=== PATIENT | female | born 1985 | race Caucasian/White ===

== ENCOUNTER 2017-04-17 02:53 | Emergency (ER) | payer MEDICAID, OTHER ==
[2017-04-17] MEDS ORDERED: Lidocaine 1% 20 ML MDV INFILT ONE (02:54)
[2017-04-17] MEDS ORDERED: Diphtheria,Pertussis(Acell),Tetanus Vaccine 0.5 ML SDV IM ONE (03:13)
[2017-04-17] MEDS ORDERED: Acetaminophen 500 MG Tab PO ONE (03:35)
--- NOTE | 2017-04-17 03:41 | EDM.PDOC ---
ED HPI GENERAL MEDICAL PROBLEM - General Chief Complaint: Laceration Stated Complaint: HAND LAC Time Seen by Provider: 04/17/17 03:15 Source of Information: Reports: Patient, Old Records, RN History Limitations: Reports: No Limitations - History of Present Illness INITIAL COMMENTS - FREE TEXT/NARRATIVE: 31 yo female presents with a work related L hand laceration. Tetanus last about 5 yrs ago. No numbness to her fingers. 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: Other (see below) (none) Left Hand Pain Score (Numeric/FACES): 3 - Related Data Allergies Allergy/AdvReac Type Severity Reaction Status Date / Time amoxicillin Allergy Hives Verified 04/17/17 02:56 metoclopramide HCl Allergy Cannot Verified 04/17/17 02:56 [From Reglan] Remember pantoprazole Allergy Itching Verified 04/17/17 02:56 Penicillins Allergy Hives Verified 04/17/17 02:56 Home Meds: Home Meds NK [No Known Home Meds] 04/17/17 [History] Past Medical History - Past Health History Medical/Surgical History: Denies Medical/Surgical History Cardiovascular History: Reports: Other (See Below) Other Cardiovascular History: gestational HTN Genitourinary History: Reports: UTI, Recurrent 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: , 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 Other OB/BYN History: 9 weeks gestation Other Musculoskeletal History: fx R fibula - Infectious Disease History Infectious Disease History: Reports: Chicken Pox, Measles, Mumps Social & Family History - Family History Family Medical History: Noncontributory OBGYN: Reports: Other OBGYN Family History: 9 weeks gestation - Tobacco Use Smoking Status *Q: Current Every Day Smoker Years of Tobacco use: 16 Packs/Tins Daily: 1 Used Tobacco, but Quit: No Month Tobacco Last Used: 08/03 Second Hand Smoke Exposure: Yes - Caffeine Use Caffeine Use: Reports: Soda - Alcohol Use Days Per Week of Alcohol Use: 1 Number of Drinks Per Day: 1 Total Drinks Per Week: 1 - Recreational Drug Use Recreational Drug Use: No Drug Use in Last 12 Months: No ED ROS GENERAL - Review of Systems Review Of Systems: See Below Constitutional: Reports: No Symptoms Respiratory: Reports: No Symptoms Cardiovascular: Reports: No Symptoms Musculoskeletal: Reports: No Symptoms Skin: Reports: Wound (L hand) Neurological: Reports: No Symptoms Psychiatric: Reports: No Symptoms ED EXAM, SKIN/RASH Exam: See Below Exam Limited By: No Limitations General Appearance: Alert, WD/WN, No Apparent Distress Ears: Normal External Exam, Normal Canal, Hearing Grossly Normal Nose: Normal Inspection, Normal Mucosa, No Blood Throat/Mouth: Normal Lips, Normal Voice, No Airway Compromise Head: Atraumatic, Normocephalic Neck: Normal Inspection Respiratory/Chest: No Respiratory Distress, No Accessory Muscle Use Cardiovascular: Regular Rate, Rhythm Extremities: Other (laceration L hypothenar emminence.) Neurological: Alert, Oriented, CN II-XII Intact, Normal Cognition, No Motor/ Sensory Deficits Psychiatric: Normal Affect, Normal Mood Skin: Warm, Dry, Normal Color, No Rash, Wound/Incision Location, Skin: Upper Extremity, Left Characteristics: Linear Associated features: Tenderness Lymphatic: No Adenopathy ED SKIN PROCEDURES - Laceration/Wound Repair Left Hand Lac/Wound length In cm: 3 Appearance: Subcutaneous, Clean Distal NVT: Neuro & Vascular Intact, No Tendon Injury Anesthetic Type: Local Local Anesthesia - Lidocaine (Xylocaine): 1% Plain Local Anesthetic Volume: Other (6 ml) Skin Prep: Saline Exploration/Debridement/Repair: No Foreign Material Found Closed with: Sutures Suture Size: other (5-0 Ethilon) # of Sutures: 8 Suture Type: Nylon Drain Placement: No Sterile Dressing Applied: Nurse Tetanus Status Addressed: Yes Complications: No Course - Vital Signs Last Recorded V/S: Last Vital Signs Temp 36.6 C 04/17/17 03:06 Pulse 74 04/17/17 03:06 Resp 16 04/17/17 03:06 BP 116/66 04/17/17 03:06 Pulse Ox 100 04/17/17 03:06 - Orders/Labs/Meds Orders: Active Orders 24 hr Category Date Time Status Vaccines to be Administered [RC] PER UNIT ROUTINE Care 04/17/17 03:14 Active DRUG SCREEN, URINE ALERE [URCHEM] Stat Lab 04/17/17 03:11 Uncollected Acetaminophen [Tylenol Extra Strength] Med 04/17/17 03:35 Once 1,000 mg PO ONETIME ONE Meds: Medications Discontinued Medications Generic Name Dose Route Start Last Admin Trade Name Hudson PRN Reason Stop Dose Admin Diphtheria/Tetanus/Acell Pertussis 0.5 ml 04/17/17 03:13 04/17/17 03:19 Adacel IM 04/17/17 03:14 0.5 ml .ONCE ONE Administration Departure - Departure Time of Disposition: 03:42 Disposition: Home, Self-Care 01 Condition: Good Clinical Impression: Laceration of hand Qualifiers: Encounter type: initial encounter Foreign body presence: without foreign body Laterality: left Qualified Code(s): S61.412A - Laceration without foreign body of left hand, initial encounter - Discharge Information Referrals: Gamal Lopez MD [Primary Care Provider] - Forms: ED Department Discharge, ED Return to Work/School Form Additional Instructions: Clean wound twice daily with soap and water. Dry. Apply Bacitracin ointment and a new dressing. Keep wound clean for 72 hrs. Take acetaminophen and/or ibuprofen as needed for pain relief. Recheck for signs of infection. Stitches out in the clinic in 10 days, call for an appt. - My Orders Last 24 Hours: My Active Orders 04/17/17 03:11 DRUG SCREEN, URINE ALERE [URCHEM] Stat 04/17/17 03:14 Vaccines to be Administered [RC] PER UNIT ROUTINE 04/17/17 03:35 Acetaminophen [Tylenol Extra Strength] 1,000 mg PO ONETIME ONE - Assessment/Plan Last 24 Hours: My Active Orders 04/17/17 03:11 DRUG SCREEN, URINE ALERE [URCHEM] Stat 04/17/17 03:14 Vaccines to be Administered [RC] PER UNIT ROUTINE 04/17/17 03:35 Acetaminophen [Tylenol Extra Strength] 1,000 mg PO ONETIME ONE
[2017-04-17 03:49] VITALS: BP 118/75
== END 2017-04-17 03:45 | disposition home or self-care (01) ==
LOC: FB.ED 02:53
DX: S61.412A Laceration without foreign body of left hand, initial encounter (principal); F17.210 Nicotine dependence, cigarettes, uncomplicated; Z3A.09 9 weeks gestation of pregnancy; Z88.1 Allergy status to other antibiotic agents; Z88.8 Allergy status to other drugs, medicaments and biological substances; Z23 Encounter for immunization; Z88.0 Allergy status to penicillin; Z87.440 Personal history of urinary (tract) infections; W26.9XXA Contact with unspecified sharp object(s), initial encounter; Y92.69 Other specified industrial and construction area as the place of occurrence of the external cause; Y99.0 Civilian activity done for income or pay
CPT/HCPCS: 12002; 90471; 90715; 99000; 99283; A4217; A9270

== ENCOUNTER 2017-07-18 17:04 | Observation (INO) | payer OTHER ==
[2017-07-18] MEDS ORDERED: Levofloxacin 250 MG Tab PO ONE (17:59)
[2017-07-18] MEDS ORDERED: Sodium Chloride 0.9% 1,000 ML IV ONE (18:22)
[2017-07-18] MEDS ORDERED: Sodium Chloride 0.9% 10 ML Syringe FLUSH PRN (18:40)
--- NOTE | 2017-07-18 18:52 | EDM.PDOC ---
ED HPI GENERAL MEDICAL PROBLEM - General Chief Complaint: General Stated Complaint: CHILLS, NAUSEA Time Seen by Provider: 07/18/17 17:22 Source of Information: Reports: Patient, Family History Limitations: Reports: Uncooperative (is always on the phone!) - History of Present Illness INITIAL COMMENTS - FREE TEXT/NARRATIVE: 31 years old w f -smoker-was seen by her PMD and diagnosed with an UTI which caused her lower abd. pain and dysuria. Pt came to the today because she has no money to buy the Abx. Pt has no F/C and a heart rate of 147. Pt denied . BP 128/81 Temp 37.1 pulse 147 Pulse ox 100% on RA Onset: Today Onset Date: 07/17/17 Onset Time: 13:00 Duration: Day(s):, Intermittent Location: Reports: Pelvis Quality: Reports: Dull, Pressure Severity: Mild Improves with: Reports: Rest Worsens with: Reports: Movement Context: Reports: Other (uti) Associated Symptoms: Reports: No Other Symptoms Bilateral Flank Pain Score (Numeric/FACES): 8 Headache Pain Score (Numeric/FACES): 8 - Related Data Allergies Allergy/AdvReac Type Severity Reaction Status Date / Time amoxicillin Allergy Hives Verified 07/18/17 17:18 metoclopramide HCl Allergy Cannot Verified 07/18/17 17:18 [From Reglan] Remember pantoprazole Allergy Itching Verified 07/18/17 17:18 Penicillins Allergy Hives Verified 07/18/17 17:18 Home Meds: Home Meds Sertraline HCl [Zoloft] 50 mg PO DAILY 07/18/17 [History] hydrOXYzine Pamoate [Hydroxyzine Pamoate] 25 mg PO Q6HR PRN 07/19/17 [History] Past Medical History - Past Health History Medical/Surgical History: Denies Medical/Surgical History Cardiovascular History: Reports: Other (See Below) Other Cardiovascular History: gestational HTN Genitourinary History: Reports: UTI, 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: , 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 Other OB/BYN History: 9 weeks gestation Other Musculoskeletal History: fx R fibula - Infectious Disease History Infectious Disease History: Reports: Chicken Pox, Measles, Mumps Social & Family History - Family History Family Medical History: Noncontributory OBGYN: Reports: Other OBGYN Family History: 9 weeks gestation - Tobacco Use Smoking Status *Q: Current Every Day Smoker Years of Tobacco use: 16 Packs/Tins Daily: 1 Used Tobacco, but Quit: No Month Tobacco Last Used: 08/03 Second Hand Smoke Exposure: Yes - Caffeine Use Caffeine Use: Reports: Coffee - Alcohol Use Days Per Week of Alcohol Use: 1 Number of Drinks Per Day: 1 Total Drinks Per Week: 1 - Recreational Drug Use Recreational Drug Use: No Drug Use in Last 12 Months: No ED ROS GENERAL - Review of Systems Review Of Systems: See Below Constitutional: Reports: Fever, Chills HEENT: Reports: No Symptoms Respiratory: Reports: No Symptoms Cardiovascular: Reports: No Symptoms Endocrine: Reports: No Symptoms GI/Abdominal: Reports: Abdominal Pain (suprapubic) : Reports: Dysuria, Flank Pain, Frequency, Hematuria Musculoskeletal: Reports: No Symptoms Skin: Reports: No Symptoms Neurological: Reports: No Symptoms Psychiatric: Reports: No Symptoms Hematologic/Lymphatic: Reports: No Symptoms Immunologic: Reports: No Symptoms ED EXAM, GENERAL - Physical Exam Exam: See Below Exam Limited By: No Limitations General Appearance: Alert, WD/WN, Mild Distress Eye Exam: Bilateral Eye: Normal Inspection Ears: Normal External Exam Ear Exam: Bilateral Ear: Auricle Normal Nose: Normal Inspection Throat/Mouth: Normal Inspection Head: Atraumatic, Normocephalic Neck: Normal Inspection, Supple Respiratory/Chest: No Respiratory Distress, Lungs Clear Cardiovascular: Normal Peripheral Pulses, Tachycardia Peripheral Pulses: 1+: Radial (L), Radial (R) GI/Abdominal: Normal Bowel Sounds, Tender (suprapubic) (Female) Exam: Deferred Rectal (Female) Exam: Deferred Back Exam: Normal Inspection, Full Range of Motion Extremities: Normal Inspection, Normal Range of Motion, Non-Tender Neurological: Alert, Oriented, CN II-XII Intact, Normal Cognition, Normal Gait Psychiatric: Normal Affect, Normal Mood Skin Exam: Warm, Dry, Intact, Normal Color, No Rash Lymphatic: No Adenopathy EKG INTERPRETATION EKG Date: 07/18/17 Time: 19:05 Rhythm: NSR Rate (Beats/Min): 121 [place]: Normal P-Wave: Present QRS: Normal ST-T: Normal QT: Normal Comparison: NA - No Prior EKG Course - Vital Signs Text/Narrative:: 31 years old w f -smoker-was seen by her PMD and diagnosed with an UTI which caused her lower abd. pain and dysuria. Pt came to the today because she has no money to buy the Abx. Pt has no F/C and a heart rate of 147. Pt denied . BP 128/81 Temp 37.1 pulse 147 Pulse ox 100% on RA PE: R flank and suprapubic tenderness with F/C Labs: WBC 28.6 with left shift, K 3.3 Na 138 GFR 59 UDS neg HCG neg Lactic acid 1.4 ECG: Sinus tach 121 Impression: UTI, Pyelonephritis, Dehydration, Noncompliance, Dehydration Tx: Levofloxacine po, NS, Reexam: Improved Plan: admit to M/S tele Last Recorded V/S: Last Vital Signs Temp 37.0 C 07/19/17 07:45 Pulse 113 H 07/19/17 07:45 Resp 18 07/19/17 07:45 BP 98/60 07/19/17 07:45 Pulse Ox 97 07/19/17 07:45 - Orders/Labs/Meds Orders: Active Orders 24 hr Category Date Time Status Patient Status [ADT] Routine ADT 07/18/17 19:18 Active Oxygen Therapy [RC] PRN Care 07/18/17 19:18 Active Pulse Oximetry [RC] PRN Care 07/18/17 19:20 Active Up With Assistance [RC] ASDIRECTED Care 07/18/17 19:18 Active Vital Signs [RC] Q4H Care 07/18/17 19:18 Active CULTURE BLOOD [BC] Urgent Lab 07/18/17 16:25 Received CULTURE BLOOD [BC] Urgent Lab 07/18/17 19:20 Received CULTURE URINE [RM] Stat Lab 07/18/17 17:31 Received Docusate Sodium [Colace] Med 07/18/17 19:18 Active 100 mg PO BID PRN Lactated Ringers [Ringers, Lactated] 1,000 ml Med 07/18/17 19:30 Active IV ASDIRECTED Sodium Chloride 0.9% [Saline Flush] Med 07/18/17 18:40 Active 10 ml FLUSH ASDIRECTED PRN Blood Culture x2 Reflex Set [OM.PC] Urgent Oth 07/18/17 19:12 Ordered Saline Lock Insert [OM.PC] Routine Oth 07/18/17 18:40 Ordered Resuscitation Status Routine Resus Stat 07/18/17 19:18 Ordered EKG 12 Lead [EK] Routine Ther 07/18/17 18:23 Ordered Medication Orders Acetaminophen (Tylenol) 650 mg PO Q4H PRN PRN Reason: Pain Last Admin: 07/19/17 08:03 Dose: 650 mg Admin: 07/19/17 01:40 Dose: 650 mg Acetaminophen (Tylenol) 650 mg PO Q4H PRN PRN Reason: Fever Docusate Sodium (Colace) 100 mg PO BID PRN PRN Reason: Constipation Lactated Ringer's (Ringers, Lactated) 1,000 mls @ 125 mls/hr IV ASDIRECTED [facility] Last Admin: 07/19/17 04:24 Dose: 125 mls/hr Infusion: 07/19/17 04:24 Dose: 125 mls/hr Admin: 07/18/17 20:34 Dose: 125 mls/hr Levofloxacin/Dextrose 750 mg/ (Premix) 150 mls @ 100 mls/hr IV Q24H [facility] Nicotine (Habitrol) 21 mg TRDERM DAILY [facility] Last Admin: 07/19/17 09:11 Dose: 21 mg Hydroxyzine Pamoate 25 Mg Cap Own Med* * 1 each PO Q6H PRN PRN Reason: Anxiety Ondansetron HCl (Zofran) 4 mg IVPUSH Q4H PRN PRN Reason: Nausea/Vomiting Sertraline HCl (Zoloft) 50 mg PO DAILY [facility] Last Admin: 07/19/17 09:11 Dose: 50 mg Sodium Chloride (Saline Flush) 10 ml FLUSH ASDIRECTED PRN PRN Reason: Keep Vein Open Labs: Laboratory Tests 07/18/17 07/18/17 07/18/17 Range/Units 17:31 17:31 17:31 WBC (4.5-12.0) X10-3/uL RBC (3.23-5.20) x10(6)uL Hgb (11.5-15.5) g/dL Hct (30.0-51.3) % MCV (80-96) fL MCH (27.7-33.6) pg MCHC (32.2-35.4) g/dL RDW (11.5-15.5) % Plt Count (125-369) X10(3)uL MPV (7.4-10.4) fL Add Manual Diff Neutrophils % (Manual) (46-82) % Band Neutrophils % (0-6) % Lymphocytes % (Manual) (13-37) % Monocytes % (Manual) (4-12) % Sodium (135-145) mmol/L Potassium (3.5-5.3) mmol/L Chloride (100-110) mmol/L Carbon Dioxide (21-32) mmol/L BUN (7-18) mg/dL Creatinine (0.55-1.02) mg/dL Est Cr Clr Drug Dosing mL/min Estimated GFR (MDRD) (>60) BUN/Creatinine Ratio (9-20) Glucose (80-116) mg/dL Lactic Acid (0.4-2.2) mmol/L Calcium (8.6-10.2) mg/dL Urine Color [place] (YELLOW) Urine Appearance Slightly cloudy (CLEAR) Urine pH 6.0 (5.0-6.5) Ur Specific [place] 1.015 (1.010-1.025) Urine Protein 30 H (NEGATIVE) mg/dL Urine Glucose (UA) 100 H (NEGATIVE) mg/dL Urine Ketones Negative (NEGATIVE) mg/dL Urine Occult Blood Large H (NEGATIVE) Urine Nitrite Positive H (NEGATIVE) Urine Bilirubin Negative (NEGATIVE) Urine Urobilinogen 8 H (NEGATIVE) mg/dL Ur Leukocyte Esterase Large H (NEGATIVE) Urine RBC >100 H (0) Urine WBC >100 H (0) Ur Squamous Epith Cells Many H (NS,R,O) Urine Bacteria Many H (NS) Urine HCG, Qual Negative (NEGATIVE) Urine Opiates Screen Negative (NEGATIVE) Ur Oxycodone Screen Negative (NEGATIVE) Ur Propoxyphene Screen Negative (NEGATIVE) Ur Barbituates Screen Negative (NEGATIVE) Ur Tricyclics Screen Negative (NEGATIVE) Ur Phencyclidine Scrn Negative (NEGATIVE) Ur Amphetamine Screen Negative (NEGATIVE) Urine MDMA Screen Negative (NEGATIVE) U Benzodiazepines Scrn Negative (NEGATIVE) U Cocaine Metab Screen Negative (NEGATIVE) U Marijuana (THC) Screen Negative (NEGATIVE) 07/18/17 07/18/17 07/18/17 Range/Units 18:30 18:30 18:30 WBC 28.6 H (4.5-12.0) X10-3/uL RBC 4.53 (3.23-5.20) x10(6)uL Hgb 13.1 (11.5-15.5) g/dL Hct 38.3 (30.0-51.3) % MCV 84.6 (80-96) fL MCH 28.9 (27.7-33.6) pg MCHC 34.2 (32.2-35.4) g/dL RDW 13.5 (11.5-15.5) % Plt Count 232 (125-369) X10(3)uL MPV 8.5 (7.4-10.4) fL Add Manual Diff Yes Neutrophils % (Manual) 85 H (46-82) % Band Neutrophils % 5 (0-6) % Lymphocytes % (Manual) 6 L (13-37) % Monocytes % (Manual) 4 (4-12) % Sodium 135 (135-145) mmol/L Potassium 3.3 L (3.5-5.3) mmol/L Chloride 100 (100-110) mmol/L Carbon Dioxide 24 (21-32) mmol/L BUN 11 (7-18) mg/dL Creatinine 1.1 H (0.55-1.02) mg/dL Est Cr Clr Drug Dosing 53.71 mL/min Estimated GFR (MDRD) 58 L (>60) BUN/Creatinine Ratio 10.0 (9-20) Glucose 106 (80-116) mg/dL Lactic Acid 1.4 (0.4-2.2) mmol/L Calcium 8.8 (8.6-10.2) mg/dL Urine Color (YELLOW) Urine Appearance (CLEAR) Urine pH (5.0-6.5) Ur Specific [place] (1.010-1.025) Urine Protein (NEGATIVE) mg/dL Urine Glucose (UA) (NEGATIVE) mg/dL Urine Ketones (NEGATIVE) mg/dL Urine Occult Blood (NEGATIVE) Urine Nitrite (NEGATIVE) Urine Bilirubin (NEGATIVE) Urine Urobilinogen (NEGATIVE) mg/dL Ur Leukocyte Esterase (NEGATIVE) Urine RBC (0) Urine WBC (0) Ur Squamous Epith Cells (NS,R,O) Urine Bacteria (NS) Urine HCG, Qual (NEGATIVE) Urine Opiates Screen (NEGATIVE) Ur Oxycodone Screen (NEGATIVE) Ur Propoxyphene Screen (NEGATIVE) Ur Barbituates Screen (NEGATIVE) Ur Tricyclics Screen (NEGATIVE) Ur Phencyclidine Scrn (NEGATIVE) Ur Amphetamine Screen (NEGATIVE) Urine MDMA Screen (NEGATIVE) U Benzodiazepines Scrn (NEGATIVE) U Cocaine Metab Screen (NEGATIVE) U Marijuana (THC) Screen (NEGATIVE) Meds: Medications Generic Name Dose Route Start Last Admin Trade Name Hudson PRN Reason Stop Dose Admin Acetaminophen 650 mg 07/19/17 00:51 07/19/17 08:03 Tylenol PO 650 mg Q4H PRN Administration Pain Acetaminophen 650 mg 07/19/17 08:41 Tylenol PO Q4H PRN Fever Docusate Sodium 100 mg 07/18/17 19:18 Colace PO BID PRN Constipation Lactated Ringer's 1,000 mls @ 125 mls/hr 07/18/17 19:30 07/19/17 04:24 Ringers, Lactated IV 125 mls/hr ASDIRECTED [facility]ERRANCE Administration Levofloxacin/Dextrose 750 mg/ 150 mls @ 100 mls/hr 07/19/17 12:00 Premix IV Q24H [facility] Nicotine 21 mg 07/19/17 09:00 07/19/17 09:11 Habitrol TRDERM 21 mg DAILY [facility] Administration Hydroxyzine Pamoate 1 each 07/19/17 01:50 25 Mg Cap Own Med* PO * Q6H PRN Anxiety Ondansetron HCl 4 mg 07/19/17 08:41 Zofran IVPUSH Q4H PRN Nausea/Vomiting Sertraline HCl 50 mg 07/19/17 09:00 07/19/17 09:11 Zoloft PO 50 mg DAILY [facility] Administration Sodium Chloride 10 ml 07/18/17 18:40 Saline Flush FLUSH ASDIRECTED PRN Keep Vein Open Discontinued Medications Generic Name Dose Route Start Last Admin Trade Name Hudson PRN Reason Stop Dose Admin Hydroxyzine Pamoate 50 mg 07/19/17 00:51 Vistaril PO Q6H PRN Anxiety Sodium Chloride 1,000 mls @ 999 mls/hr 07/18/17 18:22 07/18/17 18:52 Normal Saline IV 07/18/17 19:22 999 mls/hr .BOLUS ONE Administration Levofloxacin/Dextrose 500 mg/ 100 mls @ 100 mls/hr 07/19/17 08:45 Premix IV Q24H [facility] Levofloxacin 500 mg 07/18/17 17:59 07/18/17 18:17 Levaquin PO 07/18/17 18:00 500 mg ONETIME ONE Administration Hydroxyzine Pamoate 2 each 07/19/17 01:25 25mg Cap Own Med PO Q6H PRN Anxiety Ondansetron HCl 4 mg 07/18/17 19:18 07/18/17 20:26 Zofran IV 4 mg Q4H PRN Administration Nausea/Vomiting Potassium Chloride 40 meq 07/18/17 19:14 07/18/17 20:25 Klor-Con M20 PO 07/18/17 19:15 40 meq ONETIME ONE Administration Potassium Chloride Confirm 07/18/17 20:31 07/18/17 21:41 Klor-Con M20 Administered 07/18/17 20:32 Not Given Dose 20 meq .ROUTE .STK-MED ONE Departure - Departure Time of Disposition: 20:00 Disposition: Refer to Observation Condition: Fair Clinical Impression: Pyelonephritis - Discharge Information - My Orders Last 24 Hours: My Active Orders 07/18/17 16:25 CULTURE BLOOD [BC] Urgent 07/18/17 17:31 CULTURE URINE [RM] Stat 07/18/17 18:23 EKG 12 Lead [EK] Routine 07/18/17 18:40 Sodium Chloride 0.9% [Saline Flush] 10 ml FLUSH ASDIRECTED PRN Saline Lock Insert [OM.PC] Routine 07/18/17 19:12 Blood Culture x2 Reflex Set [OM.PC] Urgent 07/18/17 19:18 Patient Status [ADT] Routine Oxygen Therapy [RC] PRN Up With Assistance [RC] ASDIRECTED Vital Signs [RC] Q4H Docusate Sodium [Colace] 100 mg PO BID PRN Resuscitation Status Routine 07/18/17 19:20 Pulse Oximetry [RC] PRN CULTURE BLOOD [BC] Urgent 07/18/17 19:30 Lactated Ringers [Ringers, Lactated] 1,000 ml IV ASDIRECTED - Assessment/Plan Last 24 Hours: My Active Orders 07/18/17 16:25 CULTURE BLOOD [BC] Urgent 07/18/17 17:31 CULTURE URINE [RM] Stat 07/18/17 18:23 EKG 12 Lead [EK] Routine 07/18/17 18:40 Sodium Chloride 0.9% [Saline Flush] 10 ml FLUSH ASDIRECTED PRN Saline Lock Insert [OM.PC] Routine 07/18/17 19:12 Blood Culture x2 Reflex Set [OM.PC] Urgent 07/18/17 19:18 Patient Status [ADT] Routine Oxygen Therapy [RC] PRN Up With Assistance [RC] ASDIRECTED Vital Signs [RC] Q4H Docusate Sodium [Colace] 100 mg PO BID PRN Resuscitation Status Routine 07/18/17 19:20 Pulse Oximetry [RC] PRN CULTURE BLOOD [BC] Urgent 07/18/17 19:30 Lactated Ringers [Ringers, Lactated] 1,000 ml IV ASDIRECTED
[2017-07-18] MEDS ORDERED: Potassium Chloride 20 MEQ Tab.ER PO ONE (19:14)
[2017-07-18] MEDS ORDERED: Ondansetron 4 MG/2 ML SDV IV PRN (19:18)
[2017-07-18] MEDS ORDERED: Docusate Sodium 100 MG Cap PO PRN (19:18)
[2017-07-18] MEDS ORDERED: Potassium Chloride 20 MEQ Tab.ER ONE (20:31)
[2017-07-18] MEDS: Lactated Ringers 1,000 ML IV SCH (20:34)
[2017-07-19] MEDS ORDERED: HYDROXYZINE PAMOATE 25 MG PO PRN ×2 (01:25→01:50)
[2017-07-19] MEDS: Acetaminophen 325 MG Tab PO PRN ×4 (01:40→17:06)
[2017-07-19] MEDS: Lactated Ringers 1,000 ML IV SCH ×3 (04:24→23:32)
--- NOTE | 2017-07-19 08:40 | PCM.HP ---
H&P History of Present Illness - General Date of Service: 07/19/17 Admit Problem/Dx: Admission Diagnosis/Problem Admission Diagnosis/Problem Urosepsis Source of Information: Patient History Limitations: Reports: No Limitations - History of Present Illness Initial Comments - Free Text/Narative: This is a 31-year-old female patient that was diagnosed with a UTI 2 days ago. She has some right back pain and some mild dysuria. She was seen in the clinic and given some antibiotics prescription. Apparently she had no money so they didn't get the prescription filled. She came in last night to the ER with fevers , chills, body aches, fatigue, right back pain. She was diagnosed with pyelonephritis and possible sepsis. She denies nasal congestion, sore throat, cough, vaginal discharge. She has no hematuria. Bilateral Flank Pain Score (Numeric/FACES): 8 Headache Pain Score (Numeric/FACES): 8 - Related Data Allergies/Adverse Reactions: Allergies Allergy/AdvReac Type Severity Reaction Status Date / Time amoxicillin Allergy Hives Verified 07/18/17 17:18 metoclopramide HCl Allergy Cannot Verified 07/18/17 17:18 [From Reglan] Remember pantoprazole Allergy Itching Verified 07/18/17 17:18 Penicillins Allergy Hives Verified 07/18/17 17:18 Home Medications: Home Meds Sertraline HCl [Zoloft] 50 mg PO DAILY 07/18/17 [History] hydrOXYzine Pamoate [Hydroxyzine Pamoate] 25 mg PO Q6HR PRN 07/19/17 [History] Past Medical History - Past Health History Medical/Surgical History: Denies Medical/Surgical History Cardiovascular History: Reports: Other (See Below) Other Cardiovascular History: gestational HTN Genitourinary History: Reports: UTI, Recurrent 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: , 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 Other OB/BYN History: 9 weeks gestation Other Musculoskeletal History: fx R fibula Psychiatric History: Reports: Bipolar, PTSD - Infectious Disease History Infectious Disease History: Reports: Chicken Pox, Measles, Mumps - Past Surgical History HEENT Surgical History: Reports: Oral Surgery Cardiovascular Surgical History: Reports: None Female Surgical History: Reports: Section Social & Family History - Family History Family Medical History: Noncontributory OBGYN: Reports: Other OBGYN Family History: 9 weeks gestation - Tobacco Use Smoking Status *Q: Current Every Day Smoker Years of Tobacco use: 16 Packs/Tins Daily: 1 Used Tobacco, but Quit: No Month Tobacco Last Used: 08/03 Second Hand Smoke Exposure: Yes - Caffeine Use Caffeine Use: Reports: Coffee - Alcohol Use Days Per Week of Alcohol Use: 1 Number of Drinks Per Day: 1 Total Drinks Per Week: 1 - Recreational Drug Use Recreational Drug Use: No Drug Use in Last 12 Months: No H&P Review of Systems - Review of Systems: Review Of Systems: See Below General: Reports: Fever, Chills, Malaise, Fatigue HEENT: Reports: No Symptoms Pulmonary: Reports: No Symptoms Cardiovascular: Reports: No Symptoms Gastrointestinal: Reports: No Symptoms Genitourinary: Reports: Dysuria, Burning, Flank Pain. Denies: Frequency, Urgency, Hematuria, Abnormal Menses, Dysmenorrhea Musculoskeletal: Reports: No Symptoms Skin: Reports: No Symptoms Psychiatric: Reports: No Symptoms Neurological: Reports: No Symptoms Hematologic/Lymphatic: Reports: No Symptoms Immunologic: Reports: No Symptoms Exam - Exam Exam: See Below - Vital Signs Vital Signs: Last Vital Signs Temp 98.1 F 07/19/17 04:42 Pulse 100 07/19/17 04:42 Resp 16 07/19/17 04:42 BP 90/56 L 07/19/17 04:42 Pulse Ox 98 07/19/17 04:42 Weight: 155 lb 1.6 oz - Exam General: Alert, Oriented, Cooperative HEENT: Hearing Intact, Mucosa Moist & [place], Posterior Pharynx Clear, TMs Clear Neck: Supple, Trachea Midline. No: Lymphadenopathy Lungs: Clear to Auscultation, Normal Respiratory Effort. No: Crackles, Rales, Rhonchi Cardiovascular: Regular Rate, Regular Rhythm GI/Abdominal Exam: Normal Bowel Sounds, Soft, Non-Tender, No Organomegaly, No Distention, No Abnormal Bruit, No Mass Back Exam: Normal Inspection, Full Range of Motion Extremities: Normal Inspection, Normal Range of Motion, Non-Tender, No Pedal Edema, Normal Capillary Refill Neurological: Normal Speech, Normal Tone Neuro Extensive - Mental Status: Alert, Oriented x3, Normal Cognition, Memory Intact Neuro Extensive - Motor, Sensory, Reflexes: Normal Gait Psychiatric: Alert - Patient Data Result Diagrams: 07/18/17 18:30 07/18/17 18:30 *Q Meaningful Use (ADM) - VTE *Q VTE Criteria *Q: - Stroke *Q Stroke Criteria *Q: - AMI *Q AMI Criteria *Q: - Problem List (1) Pyelonephritis SNOMED Code(s): 97451162 ICD Code: N12 - TUBULO-INTERSTITIAL NEPHRITIS, NOT SPCF ACUTE OR CHRONIC Status: Acute Current Visit: Yes Problem List Initiated/Reviewed/Updated: Yes Orders Last 24hrs: Active Orders 24 hr Category Date Time Status Acetaminophen [Tylenol] Med 07/19/17 00:51 Active 650 mg PO Q4H PRN Non-Formulary Medication [NF Drug] Med 07/19/17 01:50 Active 1 each PO Q6H PRN Sertraline [Zoloft] Med 07/19/17 09:00 Active 50 mg PO DAILY Medication Orders Acetaminophen (Tylenol) 650 mg PO Q4H PRN PRN Reason: Pain Last Admin: 07/19/17 08:03 Dose: 650 mg Admin: 07/19/17 01:40 Dose: 650 mg Docusate Sodium (Colace) 100 mg PO BID PRN PRN Reason: Constipation Lactated Ringer's (Ringers, Lactated) 1,000 mls @ 125 mls/hr IV ASDIRECTED TERRANCE Last Admin: 07/19/17 04:24 Dose: 125 mls/hr Infusion: 07/19/17 04:24 Dose: 125 mls/hr Admin: 07/18/17 20:34 Dose: 125 mls/hr Hydroxyzine Pamoate 25 Mg Cap Own Med* * 1 each PO Q6H PRN PRN Reason: Anxiety Sertraline HCl (Zoloft) 50 mg PO DAILY TERRANCE Sodium Chloride (Saline Flush) 10 ml FLUSH ASDIRECTED PRN PRN Reason: Keep Vein Open Assessment/Plan Comment:: 1. Admit for IV antibiotics. 2. She had a urine done at the clinic the grew Escherichia coli. I and D is still pending. 3. Blood cultures 2. 4. Zofran for nausea. 5. Regular diet. 6. Tylenol PM for fevers or chills. 7. Ambulate as tolerated.
[2017-07-19] MEDS ORDERED: Acetaminophen 325 MG Tab PO PRN (08:41)
[2017-07-19] MEDS ORDERED: Levofloxacin/Dextrose 5%-Water 500 MG in Premix Bag 1 BAG IV SCH (08:45)
[2017-07-19] MEDS: Sertraline 50 MG Tab PO SCH (09:11)
[2017-07-19] MEDS: Nicotine 21 MG/24 Hr Patch TRDERM SCH (09:11)
[2017-07-19] MEDS ORDERED: Levofloxacin/Dextrose 5%-Water 750 MG in Premix Bag 1 BAG IV SCH (12:00)
[2017-07-19] MEDS: Ondansetron 4 MG/2 ML SDV IVPUSH PRN (17:07)
[2017-07-19] MEDS ORDERED: Zolpidem 5 MG Tab PO PRN (17:35)
[2017-07-19] MEDS ORDERED: Acetaminophen/HYDROcodone 325-5 MG Tab PO PRN (17:35)
[2017-07-19] MEDS: metroNIDAZOLE 500 MG Tab PO SCH (21:11)
[2017-07-20] MEDS: Acetaminophen 325 MG Tab PO PRN ×2 (00:17→11:26)
[2017-07-20] MEDS: Ondansetron 4 MG/2 ML SDV IVPUSH PRN (06:11)
[2017-07-20] MEDS: Lactated Ringers 1,000 ML IV SCH (07:58)
[2017-07-20] MEDS: Sertraline 50 MG Tab PO SCH (08:57)
[2017-07-20] MEDS: metroNIDAZOLE 500 MG Tab PO SCH (08:57)
--- NOTE | 2017-07-20 08:57 | PCM.PN ---
- General Info Date of Service: 07/20/17 Admission Dx/Problem (Free Text): Admission Diagnosis/Problem Admission Diagnosis/Problem Urosepsis Subjective Update: Patient able to tolerate oral fluid and breakfast. Has mild back pain, and had a low-grade fever overnight. - Patient Data Vitals - Most Recent: Last Vital Signs Temp 100.7 F H 07/20/17 06:00 Pulse 116 H 07/20/17 06:00 Resp 20 07/20/17 06:00 BP 96/64 07/20/17 06:00 Pulse Ox 97 07/20/17 06:00 Weight - Most Recent: 70.352 kg I&O - Last 24 Hours: Intake & Output 07/19/17 07/20/17 07/20/17 22:59 06:59 14:59 Intake Total 989 1025 Balance 989 1025 Lab Results Last 24 Hours: Laboratory Results - last 24 hr 07/20/17 Range/Units 06:30 WBC 10.2 (4.5-12.0) X10-3/uL RBC 3.83 (3.23-5.20) x10(6)uL Hgb 11.4 L (11.5-15.5) g/dL Hct 32.1 (30.0-51.3) % MCV 83.8 (80-96) fL MCH 29.7 (27.7-33.6) pg MCHC 35.4 (32.2-35.4) g/dL RDW 14.2 (11.5-15.5) % Plt Count 140 (125-369) X10(3)uL MPV 9.6 (7.4-10.4) fL Add Manual Diff Yes Neutrophils % (Manual) 87 H (46-82) % Band Neutrophils % 3 (0-6) % Lymphocytes % (Manual) 7 L (13-37) % Monocytes % (Manual) 2 L (4-12) % Eosinophils % (Manual) 1 (0-5) % Med Orders - Current: Current Medications Acetaminophen (Tylenol) 650 mg PO Q4H PRN PRN Reason: Pain Last Admin: 07/20/17 00:17 Dose: 650 mg Acetaminophen (Tylenol) 650 mg PO Q4H PRN PRN Reason: Fever Hydrocodone Bitart/Acetaminophen ([place] 325-5 Mg) 1 tab PO Q4H PRN PRN Reason: Pain Last Admin: 07/20/17 06:34 Dose: 1 tab Docusate Sodium (Colace) 100 mg PO BID PRN PRN Reason: Constipation Lactated Ringer's (Ringers, Lactated) 1,000 mls @ 125 mls/hr IV ASDIRECTED [facility] Last Admin: 07/20/17 07:58 Dose: 125 mls/hr Levofloxacin/Dextrose 750 mg/ (Premix) 150 mls @ 100 mls/hr IV Q24H [facility] Last Admin: 07/19/17 13:17 Dose: 100 mls/hr Metronidazole (Flagyl) 500 mg PO TID [facility] Last Admin: 07/19/17 21:11 Dose: 500 mg Nicotine (Habitrol) 21 mg TRDERM DAILY [facility] Last Admin: 07/19/17 09:11 Dose: 21 mg Hydroxyzine Pamoate 25 Mg Cap Own Med* * 1 each PO Q6H PRN PRN Reason: Anxiety Ondansetron HCl (Zofran) 4 mg IVPUSH Q4H PRN PRN Reason: Nausea/Vomiting Last Admin: 07/20/17 06:11 Dose: 4 mg Sertraline HCl (Zoloft) 50 mg PO DAILY [facility] Last Admin: 07/19/17 09:11 Dose: 50 mg Sodium Chloride (Saline Flush) 10 ml FLUSH ASDIRECTED PRN PRN Reason: Keep Vein Open Zolpidem Tartrate (Ambien) 5 mg PO BEDTIME PRN PRN Reason: Insomnia Last Admin: 07/19/17 20:53 Dose: 5 mg Discontinued Medications Hydroxyzine Pamoate (Vistaril) 50 mg PO Q6H PRN PRN Reason: Anxiety Sodium Chloride (Normal Saline) 1,000 mls @ 999 mls/hr IV .BOLUS ONE Stop: 07/18/17 19:22 Last Admin: 07/18/17 18:52 Dose: 999 mls/hr Levofloxacin/Dextrose 500 mg/ (Premix) 100 mls @ 100 mls/hr IV Q24H [facility] Last Admin: 07/20/17 08:00 Dose: Not Given Levofloxacin (Levaquin) 500 mg PO ONETIME ONE Stop: 07/18/17 18:00 Last Admin: 07/18/17 18:17 Dose: 500 mg Hydroxyzine Pamoate (25mg Cap Own Med) 2 each PO Q6H PRN PRN Reason: Anxiety Ondansetron HCl (Zofran) 4 mg IV Q4H PRN PRN Reason: Nausea/Vomiting Last Admin: 07/18/17 20:26 Dose: 4 mg Potassium Chloride (Klor-Con M20) 40 meq PO ONETIME ONE Stop: 07/18/17 19:15 Last Admin: 07/18/17 20:25 Dose: 40 meq Potassium Chloride (Klor-Con M20) Confirm Administered Dose 20 meq .ROUTE .STK- MED ONE Stop: 07/18/17 20:32 Last Admin: 07/18/17 21:41 Dose: Not Given - Exam General: Alert, Oriented HEENT: Pupils Equal Lungs: Clear to Auscultation Cardiovascular: Regular Rate GI/Abdominal Exam: Normal Bowel Sounds, Soft, Tender (CVA bilateral). No: Distended, Mass, Splenomegaly Extremities: Normal Inspection, Normal Range of Motion, Non-Tender, No Pedal Edema, Normal Capillary Refill - Problem List & Annotations (1) Pyelonephritis SNOMED Code(s): 31336425 Code(s): N12 - TUBULO-INTERSTITIAL NEPHRITIS, NOT SPCF ACUTE OR CHRONIC Status: Acute Current Visit: Yes (2) Bacteremia due to Gram-negative bacteria SNOMED Code(s): 565402199194 Code(s): R78.81 - BACTEREMIA Status: Acute Current Visit: Yes - Problem List Review Problem List Initiated/Reviewed/Updated: Yes - My Orders Last 24 Hours: My Active Orders 07/20/17 08:33 Renal Comp [US] Routine - Plan Plan:: 1. I will obtain an ultrasound of the kidneys to rule out pelvic or renal abscess. I I reviewed the office urine culture that showed Escherichia coli. I suspect that this is the same organism causing the pyelonephritis and bacteremia. In the office microbiology. The Escherichia coli is sensitive to penicillins, nitrofurantoin and Bactrim and fluoroquinolones. Therefore I will discharge her home today on ciprofloxacin 500 mg twice a day for 5 days and a prescription is written the pharmacy previously. We'll have her come back to the office in 1 week.
[2017-07-20] MEDS: Nicotine 21 MG/24 Hr Patch TRDERM SCH (08:58)
[2017-07-20] MEDS ORDERED: Sertraline 50 MG Tab PO SCH (09:00)
[2017-07-20 10:19] VITALS: BP 106/62
--- NOTE | 2017-07-23 16:32 | US ---
INDICATION: Increased WBCs, pain, fever. RENAL ULTRASOUND COMPLETE: Multiple ultrasonic images revealed the right kidney to measure 13.6 x 4.6 x 5.5 cm. Left kidney measured 12.6 x 4.7 x 5.8 cm. The urinary bladder had a normal appearance with bilateral ureteral jets. The kidneys showed no evidence of obstructive uropathy, abnormal blood flow, or mass lesions. No calculi were seen. There is an appearance of somewhat echogenic cortex in the upper pole of the right kidney, raising question of pyelonephritis - medical renal disease in that area. This should be correlated clinically. CT examination with contrast may be helpful for further evaluation of this finding. Initial without IV contrast examination may be warranted also. If pyelonephritis is suspected clinically, CT examination with contrast is recommended for further evaluation. IMPRESSION: Normal renal and bladder ultrasound except for question of increased echogenicity of the upper pole cortex of the right kidney. This raises question of medical renal disease, such as pyelonephritis, which could be further evaluated by CT without and with IV contrast. Report faxed to Dr. Lopez 07/23/2017 at 1859 hours. [facility]
== END 2017-07-20 12:40 | disposition home or self-care (01) ==
LOC: FB.ED 17:04 → FB.MS 19:20
PROVIDERS: ADMIT Emergency Medicine; ATTEND Family Medicine
DX: R68.83 Chills (without fever) (principal); R11.0 Nausea
CPT/HCPCS: 36415; 76770; 80048; 80305; 81001; 81025; 83605; 85025; 87040; 87077; 87086; 87088; 87186; 93005; 96360; 99284; A9270; J1956; J2405; J7040; J7120; 96361; 96365; 96375; 96376; G0378

== ENCOUNTER 2017-12-30 13:09 | Emergency (ER) | payer OTHER ==
[2017-12-30 13:37] VITALS: BP 123/60
--- NOTE | 2018-01-01 13:40 | ER ---
DATE SEEN: 12/30/2017 TIME SEEN: The patient was seen at 1418 hours. HISTORY OF PRESENT ILLNESS: This 32-year-old woman comes in with history with increased pain in the right upper jaw. She has chipped tooth on 12/28/2017 with increased swelling in the right jaw yesterday, 12/29/2017. She is 19 weeks . The patient is in mild distress. She is somewhat asthenic. She appears to have less weight than usual. She smokes a half pack of cigarettes per day. ALLERGIES: She is allergic to Amoxil and metoclopramide, pantoprazole, and penicillin. CURRENT MEDICATIONS: 1. Vitamins. 2. Zoloft for depression. OTHER PAST MEDICAL HISTORY: Fractured fibula, breast masses, urinary tract infections, pyelonephritis, bacteremia with gram-negative bacterial gastroenteritis. PHYSICAL EXAMINATION: GENERAL: The patient is asthenic, looks like a woman who does smoke. There is decreased fatty soft tissue face. Eyes seems somewhat withdrawn appearance. PERRLA intact. HEENT: Pupils do react to light. Pharynx: Tooth #14, the crown was broken and fractured, it is tender to percussion. 8/10 in intensity. No gingival erythema. NECK: Supple. Minimal cervical adenopathy. LUNGS: Clear. HEART: Without murmur. heartbeat intact. LABORATORY DATA: Quick-look ultrasound demonstrates appropriate heartbeat, 19 weeks gestation with fundus symphysis to fundus is approximately 19 to 20 cm. ASSESSMENT: Periapical dental abscess. PLAN: 1. Ten tablets of Vicodin for breakthrough pain, which is not responsive to 1000 mg of Tylenol. Clindamycin 150 mg t.i.d., 30 tablets. Follow up with doctor in a week or earlier. See the dentist. Make arrangements for dental repair and/or see the [facility] to have the tooth pulled. Again, 19 weeks' gestation. 2. Tooth 14 pain and fractured crown with associated periapical abscess. The patient is started on clindamycin, and hydrocodone is made available if her pain is not relieved on 1000 mg of Tylenol every 6 hours. /[id number] HUYEN/REZAL
== END 2017-12-30 14:41 | disposition home or self-care (01) ==
LOC: FB.ED 13:09
DX: O99.612 Diseases of the digestive system complicating pregnancy, second trimester (principal); K04.7 Periapical abscess without sinus; O99.342 Other mental disorders complicating pregnancy, second trimester; F32.9 Major depressive disorder, single episode, unspecified; Z88.1 Allergy status to other antibiotic agents; Z88.8 Allergy status to other drugs, medicaments and biological substances; Z79.899 Other long term (current) drug therapy; Z88.0 Allergy status to penicillin; Z3A.19 19 weeks gestation of pregnancy
CPT/HCPCS: 99282

== ENCOUNTER 2018-11-30 07:15 | Emergency (ER) | payer SELFPAY ==
[2018-11-30] MEDS ORDERED: Alum Hydroxide/Mag Hydroxide 15 ML, Lidocaine 2% 15 ML PO ONE ×2 (07:35)
[2018-11-30] MEDS ORDERED: Ondansetron 8 MG Tab.DIS PO ONE (07:35)
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
[2018-11-30] MEDS ORDERED: Phenazopyridine 95 MG Tab PO STA (08:06)
[2018-11-30 08:29] VITALS: BP 113/69
== END 2018-11-30 08:21 | disposition home or self-care (01) ==
LOC: FB.ED 07:15
DX: K29.70 Gastritis, unspecified, without bleeding (principal); I10 Essential (primary) hypertension; Z88.1 Allergy status to other antibiotic agents; Z88.0 Allergy status to penicillin
CPT/HCPCS: 80305-QW; 81001; 99284; A9270-GY

== ENCOUNTER 2025-03-10 20:35 | Emergency (ER) | payer MEDICAID ==
[2025-03-10 20:49] VITALS: BP 114/80; PULSE 95
[2025-03-10] MEDS: Lidocaine 2% Viscous Solution 15 ML UD PO ONE (21:02)
== END 2025-03-10 21:30 | disposition home or self-care (01) ==
LOC: FB.ED 20:35
DX: K05.6 Periodontal disease, unspecified (principal); K08.89 Other specified disorders of teeth and supporting structures; F17.210 Nicotine dependence, cigarettes, uncomplicated; Z88.0 Allergy status to penicillin; Z88.8 Allergy status to other drugs, medicaments and biological substances; Z79.899 Other long term (current) drug therapy
CPT/HCPCS: 99282; A9270